=== PATIENT | male | born 1980 | race Caucasian/White ===

== ENCOUNTER 2021-04-14 17:49 | Emergency (ER) | payer MEDICAID, SELFPAY ==
[2021-04-14] VITALS (19 sets, daily range): BP systolic 83–186; BP diastolic 65–158; PULSE 60–78; RESP 19–25; TEMP 36.6; O2SAT 87–100
--- NOTE | 2021-04-14 18:22 | ED.GENADULT ---
HPI - General Adult General Chief complaint: Psychiatric Symptoms <AUGUSTO Lopez - Last Filed: 04/15/21 01:24> Stated complaint: withdrawl drugs, si thoughts <AUGUSTO Lopez - Last Filed: 04/15/21 01:24> Time Seen by Provider: 04/14/21 18:24 <AUGUSTO Lopez - Last Filed: 04/15/21 01:24> Source: patient <AUGUSTO Lopez - Last Filed: 04/15/21 01:24> Mode of arrival: ambulatory <AUGUSTO Lopez - Last Filed: 04/15/21 01:24> Limitations: no limitations <AUGUSTO Lopez - Last Filed: 04/15/21 01:24> History of Present Illness HPI narrative: Patient is a 41 year old male who presents with complaints of fentanyl withdrawal. Patient reports uses fentanyl 3-4 times daily. Reports last use yesterday. Patient reports initially going to [facility] where he reports that he was kicked out for aggressive behavior in the waiting room. Patient reports that he is suicidal without a plan and when asked about homicidal ideas, he states it all depends . Patient is accompanied by daughter. He is reporting nausea and vomiting as well as difficulty sleeping and generalized body aches. <AUGUSTO Lopez - Last Filed: 04/15/21 01:24> MD complaint: opiate withdrawal <AUGUSTO Lopez - Last Filed: 04/15/21 01:24> Related Data Allergies/adverse reactions: Allergies Allergy/AdvReac Type Severity Reaction Status Date / Time No Known Allergies Allergy Verified 04/14/21 18:16 <AUGUSTO Lopez - Last Filed: 04/15/21 01:24> Review of Systems Review of Systems: Narrative: CONSTITUTIONAL: Denies fever, chills, or sweats. EYES: Denies visual changes, redness, or discharge. ENT: Denies rhinorrhea, congestion, sore throat, or otalgia. CARDIOVASCULAR: Denies chest pain, palpitations, or edema. RESPIRATORY: Denies cough or dyspnea. GASTROINTESTINAL: Reports nausea, denies vomiting or diarrhea. GENITOURINARY: Denies dysuria or hematuria. SKIN: Denies rash or itching. MUSCULOSKELETAL: Denies back pain, joint pain, or myalgia. NEUROLOGIC: Denies headache, numbness, dizziness, or weakness. PSYCHIATRIC: Denies anxiety or depression. <AUGUSTO Lopez - Last Filed: 04/15/21 01:24> PMFSH Past Medical History Medical History: Medical History Patient denies medical problems <AUGUSTO Lopez - Last Filed: 04/15/21 01:24> Surgical History Surgical History: Surgical History No significant past surgical history <AUGUSTO Lopez - Last Filed: 04/15/21 01:24> Family History Family History: Family History (Updated 04/15/21 @ 01:20 by AUGUSTO Lopez) Other No significant family history <AUGUSTO Lopez - Last Filed: 04/15/21 01:24> Social History Social History: Social History Substance use type: opiates and painkillers Gender identity (if verbalized by the patient): Male <AUGUSTO Lopez - Last Filed: 04/15/21 01:24> Comments At the time of signature, I have reviewed and agree with nursing past medical, surgical, social, and family history unless otherwise noted. Please see nursing chart for further information. There is no relevant family history pertinent to the presenting complaint. <AUGUSTO Lopez - Last Filed: 04/15/21 01:24> Exam Narrative: Exam Narrative: GENERAL: Well-appearing, well-nourished, and in no acute distress. HEAD: Normocephalic, atraumatic. EYES: EOMI. No redness or drainage. Conjunctiva are normal. ENT: Mucous membranes pink and moist. CHEST: No respiratory distress. Clear to auscultation. HEART: Regular rate and rhythm. No murmur appreciated. Normal peripheral pulses. GI: Soft, nontender without rebound, or guarding. No distention. Bowel sounds normal in all quadrants. MUSCULOSKELETAL: No bony tenderness. EXTREMITIES: Normal rang
--- NOTE | 2021-04-14 18:34 | ECG_ITS ---
Measurements Intervals [place] Rate: 61 P: 39 DE: 137 QRS: 69 QRSD: 106 T: 58 QT: 425 QTc: 429 Interpretive Statements SINUS RHYTHM NORMAL ECG Electronically Signed On 04-14-2021 19:50:58 CDT by Rico Loya D.O.
[2021-04-14] MEDS: ONDANSETRON INJ 4 MG/2 ML VIAL IV PUSH (18:55)
[2021-04-14] MEDS: SODIUM CHLORIDE 0.9% IV 1,000 ML 999 ML IV CONT (18:55)
[2021-04-14 19:02] LABS: Basophils Percent Auto 0.3 % (0.2-1.2); Eosinophils Percent Auto 0.2 % (0-4.4); Hematocrit 42.5 % (42.0-52.0); Hemoglobin 14.4 g/dL (14.0-18.0); Immature Granulocyte Absolute 0.03 K/mm3 (0.00-0.031); Immature Granulocyte Percent A 0.3 % (0-0.5); Lymphocytes Absolute Auto 1.32 K/mm3 (0.9-3.2); Lymphocytes Percent Auto 14.6 % (18.3-44.2); Mean Corpuscular HGB Conc 33.9 g/dl (32-36); Mean Corpuscular Hemoglobin 29.7 pg (26-34); Mean Corpuscular Volume 87.6 fl (80-100); Mean Platelet Volume 10.9 fl (7.4-10.4); Monocytes Absolute Auto 0.4 K/mm3 (0.1-0.6); Monocytes Percent Auto 3.9 % (2.6-8.5); Neutrophils Absolute Auto 7.3 K/mm3 (1.3-6.7); Neutrophils Percent Auto 80.7 % (45.5-73.1); Platelet Count Result 244 k/mm3 (150-375); Red Blood Count 4.85 M/mm3 (4.6-6.20); Red Cell Distribution Width 12.8 % (11.5-14.5)
[2021-04-14 19:43] LABS: Alanine Aminotransferase 15 U/L (4-50); Alkaline Phosphatase 74 U/L (38-126); Anion Gap 11 mmol/L (8-16); Aspartate Amino Transferase 29 U/L (17-59); Bilirubin,Total 0.7 mg/dL (0.2-1.3); Blood Urea Nitrogen 13 mg/dL (9-20); Calcium 10.1 mg/dL (8.4-10.2); Carbon Dioxide 25 mmol/L (22-30); Chloride 104 mmol/L (98-107); Estimated CRCL calculation 114 ml/min; Estimated Glomerular Filt Rate > 60; Ethanol < 10 mg/dL (<10); Glucose 92 mg/dL (75-110); Potassium 4.2 mmol/L (3.4-5.0); Sodium 140 mmol/L (137-145)
--- NOTE | 2021-04-14 19:49 | PC.NURSE ---
pt medically clear per erp alma delia palacios, zaira
--- NOTE | 2021-04-14 19:49 | PC.NURSE ---
patient unable/unwilling to provide urine specimen. patient states i cnat pee without something to drink . refuses straight cath
--- NOTE | 2021-04-14 19:51 | PC.NURSE ---
vm left for crisis at this time.
[2021-04-14 20:14] LABS: Thyroid Stimulating Hormone 0.184 uIU/mL (0.465-4.680)
--- NOTE | 2021-04-14 20:23 | PC.NURSE ---
RN spoke with crisis, they will send someone out to evaluate this patient juanjose.
[2021-04-14 20:25] LABS: Add Urine Microscopic? NO; Appearance Urine Clear (Clear); Bilirubin Urine Negative (Negative); Blood Urine Negative (Negative); Color Urine Yellow (Yellow); Glucose Urine UA Negative (Negative); Ketones Urine Negative (Negative); Leukocyte Esterase Ur Negative LEU/UL (Negative); Nitrate Urine Negative (Negative); Protein Urine Negative (Negative); Specific Grav Ur 1.015 (1.001-1.035); Urobilinogen Urine Negative mg/dL (<2.0)
[2021-04-14 20:29] LABS: Barbiturate Screen Urine Negative (Negative); Benzodiazepines Screen Urine Negative (Negative)
[2021-04-14 20:39] LABS: Cannabinoid Screen Urine Negative (Negative); Cocaine Screen Urine Negative (Negative); Methadone Screen Urine Negative (Negative); Opiate Screen Urine Negative (Negative); Phencyclidine Screen Urine Negative (Negative)
[2021-04-14 20:53] LABS: Lipase 21 U/L (23-300)
--- NOTE | 2021-04-14 20:54 | PC.NURSE ---
RN spoke with Dominguez in lab. Lab will have to send out Urine for amphetamine. FARHEEN Garg, TRISTAN made aware at this time.
--- NOTE | 2021-04-14 21:17 | PC.NURSE ---
[facility] here to evaluate patient
[2021-04-14] MEDS: ONDANSETRON INJ 4 MG/2 ML VIAL (21:36)
[2021-04-14] MEDS: HALOPERIDOL LACTATE 5 MG/ML VIAL IM (21:58)
[2021-04-14] MEDS: LORazepam INJ (*CRX) 2 MG/ML VIAL IM (21:58)
[2021-04-14 22:33] LABS: EDCOVIDSCREEN Negative (Negative)
--- NOTE | 2021-04-15 00:31 | PC.NURSE ---
[facility] HAS NO BEDS AVAILABLE AT THIS TIME.
[2021-04-15 01:40] VITALS: BP 108/62; PULSE 63; RESP 15; O2SAT 99
[2021-04-15 05:29] VITALS: BP 140/79; PULSE 59; O2SAT 100
--- NOTE | 2021-04-15 05:37 | PC.NURSE ---
[facility] decline
--- NOTE | 2021-04-15 05:49 | PC.NURSE ---
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
--- NOTE | 2021-04-15 08:00 | PC.NURSE ---
Pt restless on cart. Kicks off blanket and then yells out that he is cold. Alert to person, place and time. when nurse asks pt if he is still having homicidal thoughts he states its too cold .
[2021-04-15 08:01] VITALS: BP 111/60; PULSE 92; RESP 20; TEMP 36.9; O2SAT 100
--- NOTE | 2021-04-15 09:35 | PC.NURSE ---
Called daughter, Sary [phone], to come greens picker her father from the ER.
== END 2021-04-15 09:25 | disposition home or self-care (01) ==
PROVIDERS: Nurse Practitioner; Emergency Provider Emergency Medicine
DX: F11.23 Opioid dependence with withdrawal (principal); Z20.822 Contact with and (suspected) exposure to COVID-19
CPT/HCPCS: 36415; 80053; 80307; 81003; 83690; 84443; 85025; 87426; 93005; 96361; 96372; 96374; 96375; 96376; 99284; C9803; J0131; J1630; J2060; J2405; J7030